=== PATIENT | male | born 1990 | race Caucasian/White ===

== ENCOUNTER 2024-03-19 11:50 | Emergency (ER) | payer MEDICAID ==
[~2024-03-19] VITALS: Ht 175.3 cm; Wt 117.0 kg
[2024-03-19 11:51] VITALS: O2SAT 97
[2024-03-19 12:15] LABS: BASOPHILS % 0.5 % (0.0-2.0); EOSINOPHILS % 2.7 % (0.0-5.0); HEMATOCRIT. 43.7 % (42.0-52.0); HEMOGLOBIN. 15.1 g/dL (14.0-18.0); LYMPHOCYTES % 37.6 % (20.0-50.0); MEAN CORPUSCULAR HGB CONC 34.6 g/dL (31.0-37.0); MEAN CORPUSCULAR VOLUME 86.9 fL (80.0-94.0); MEAN PLATELET VOLUME 8.9 fl (7.4-10.4); MONOCYTES % 7.1 % (2.0-8.0); NEUTROPHILS % 52.1 % (40.0-76.0); PLATELET 195 x1000/uL (130-400); RED BLOOD CELL COUNT 5.02 mill/uL (4.7-6.1); RED CELL DISTRIBUTION WIDTH 13.7 % (11.6-14.6)
[2024-03-19 12:21] LABS: CHLORIDE 103 mEq/L (98-107); POTASSIUM 3.5 mEq/L (3.5-5.1); SODIUM 138 mEq/L (136-145)
[2024-03-19 12:22] LABS: CARBON DIOXIDE 29 mEq/L (21-32)
[2024-03-19 12:27] LABS: UREA NITROGEN BLOOD 13 mg/dL (9-23)
[2024-03-19 12:29] LABS: ALANINE AMINOTRANSFERASE 35 IU/L (10-49); ALBUMIN 4.5 g/dL (3.2-4.8); ASPARTATE AMINOTRANSFERASE 23 IU/L (<34); BILIRUBIN TOTAL 0.5 mg/dL (0.1-1.0); PROTEIN TOTAL 7.4 g/dL (6.0-8.3)
[2024-03-19 12:30] LABS: GLUCOSE 153 mg/dL (70-105); TROPONIN I HIGH SENSITIVITY < 4 ng/L (3.0-53)
[2024-03-19 12:32] LABS: D-DIMER < 0.19 mg/L FEU (<0.50); INR 0.9; PROTHROMBIN TIME 10.3 sec (9.6-11.0)
[2024-03-19 13:02] LABS: T4 FREE 1.18 ng/dL (0.89-1.76)
[2024-03-19 13:03] LABS: THYROID STIMULATING HORMONE 0.8 uIU/mL (0.55-4.78)
[2024-03-19] MEDS: SODIUM CHLORIDE 0.9% 1,000 ML IV ONE (13:25)
[2024-03-19] MEDS: ACETAMINOPHEN 325MG TABLET PO STA (13:30)
[2024-03-19 15:07] VITALS: BP 110/71; PULSE 67; RESP 14; TEMP 98.3
== END 2024-03-19 15:08 | disposition home or self-care (01) ==
LOC: ER 11:50
DX: R06.02 Shortness of breath (principal)
CPT/HCPCS: 99285; 96360; 71045; 80053; 83880; 84439; 83690; 84443; 85025; 85379; 85610; 84484; 36415; 93005; J7030